=== PATIENT | female | born 1980 | race Caucasian/White ===

== ENCOUNTER → 2016-09-19 | Outpatient (CLI) | payer OTHER ==
[~2016-09-19] MED LIST: ATV/1 SL; IBUP-1449 PO; MULT-506 PO; SERT-234 PO
== END | disposition home or self-care (01) ==
LOC: C.PAPS 11:54
PROVIDERS: ATTEND Obstetrics & Gynecology
DX: Z01.419 Encounter for gynecological examination (general) (routine) without abnormal findings (principal)

== ENCOUNTER → 2017-05-04 | Outpatient (CLI) | payer OTHER ==
--- NOTE | 2017-05-04 08:31 | DIAGNOSTIC IMAGING REPORT ---
ABDOMEN LIMITED (US) HISTORY: 36 years-old Female R10.11 acute right upper quadrant abdominal pain. Initial exam. COMPARISON: CT abdomen and pelvis 03/10/2014 TECHNIQUE: Multiple real-time sonographic images of the abdominal right upper quadrant were obtained assessing grayscale appearance and color flow. FINDINGS: The imaged pancreas is unremarkable. The hepatic parenchyma is within normal limits with the exception of 2 hypoechoic foci seen near the ezequiel hepatis measuring up to 3 mm suggesting cysts. There are at least 3 nonmobile mural-based echogenic non-shadowing lesions within the gallbladder lumen, largest of which measures up to 6 mm suggesting gallbladder polyps involving both the dependent and nondependent gallbladder. No gallbladder wall thickening or pericholecystic fluid collections. A positive sonographic Lei sign was not reported.: Bile duct is normal, 0.36 cm. The imaged right kidney is within normal limits without hydronephrosis. IMPRESSION: 1. At least 3 nonmobile mural-based echogenic non-shadowing lesions within the gallbladder lumen measuring up to 6 mm suggest gallbladder polyps. Follow-up ultrasound in 6 months is recommended to document stability. 2. No shadowing cholelithiasis or evidence of acute cholecystitis. 3. No biliary ductal dilation. The above report was generated using voice recognition software. It may contain grammatical, syntax or spelling errors. Electronically signed by: Alfred Wilson M.D. 05/04/2017 8:30 AM Dictated Date/Time: 05/04/2017 8:23 AM
== END | disposition home or self-care (01) ==
LOC: C.ULTR 07:24
PROVIDERS: ATTEND Family Medicine
DX: R10.11 Right upper quadrant pain (principal)

== ENCOUNTER → 2017-07-08 | Outpatient (CLI) | payer OTHER ==
[2017-07-08 10:09] LABS: BASO % 0.4 %; BASO ABS # 0.02 K/uL (0-0.2); COMPLETE YES; EOS % 2.2 %; HEMATOCRIT 38.2 % (37-47); IG% 0.2 %; LYMPH % 32.5 %; LYMPH ABS # 1.74 K/uL (1.2-3.4); MEAN CELL VOLUME 90.7 fL (80-100); MEAN CORPUSCULAR HEMOGLOBIN 29.9 pg (25-34); MEAN PLATELET VOLUME 11.1 fL (7.4-10.4); MONO % 7.3 %; NEUT % 57.4 %; PLATELET COUNT 172 K/uL (130-400); RED BLOOD COUNT 4.21 M/uL (4.2-5.4); WHITE BLOOD COUNT 5.36 K/uL (4.8-10.8)
[2017-07-08 10:37] LABS: CHOLESTEROL/HDL RATIO 2.9
== END | disposition home or self-care (01) ==
LOC: C.LAB 09:12
PROVIDERS: ATTEND Family Medicine
DX: Z86.2 Personal history of diseases of the blood and blood-forming organs and certain disorders involving the immune mechanism (principal); Z86.32 Personal history of gestational diabetes; Z83.42 Family history of familial hypercholesterolemia

== ENCOUNTER → 2017-09-24 | Outpatient (CLI) | payer OTHER | END | disposition home or self-care (01) | LOC: C.PAPS 14:17 | PROVIDERS: ATTEND Obstetrics & Gynecology | DX: Z01.419 Encounter for gynecological examination (general) (routine) without abnormal findings (principal) ==

== ENCOUNTER → 2017-09-28 | Outpatient (CLI) | payer OTHER | END | disposition home or self-care (01) | LOC: C.PATHSPEC 17:20 | PROVIDERS: ATTEND Obstetrics & Gynecology | DX: N90.4 Leukoplakia of vulva (principal) ==